=== PATIENT | male | born 1990 | race Caucasian/White ===

== ENCOUNTER 2017-04-29 23:47 | Inpatient (IN) | payer MEDICAID ==
--- NOTE | 2017-04-30 00:08 | C.PDOC ---
History Of Present Illness 26 y/o male presents to emergency department requesting heroin detox. Patient states last use was 10:00 AM today. Denies withdrawal symptoms, fever, chills, nausea, vomiting, suicidal ideation/homicidal ideation or other complaints. Time Seen by Provider: 04/30/17 00:07 Chief Complaint (Nursing): Substance Abuse History Per: Patient History/Exam Limitations: no limitations Onset/Duration Of Symptoms: Persistent Current Symptoms Are (Timing): Still Present Modifying Factor(s): Narcotics Pain Scale Rating Of: 0 Associated Symptoms: denies: Suicidal Thoughts, Suicidal Plan Recent travel outside of the [place]: No Past Medical History Reviewed: Historical Data, Nursing Documentation, Vital Signs Vital Signs: Last Vital Signs Temp 98.4 F 04/29/17 23:50 Pulse 91 H 04/30/17 02:55 Resp 16 04/30/17 02:55 BP 102/74 04/30/17 02:55 Pulse Ox 97 04/30/17 02:55 - Medical History PMH: No Chronic Diseases Family History: States: Unknown Family Hx - Social History Hx Alcohol Use: Yes Hx Substance Use: Yes - Immunization History Hx Tetanus Toxoid Vaccination: No Hx Influenza Vaccination: No Hx Pneumococcal Vaccination: No Review Of Systems Constitutional: Negative for: Fever, Chills Cardiovascular: Negative for: Chest Pain, Palpitations Respiratory: Negative for: Shortness of Breath Gastrointestinal: Negative for: Nausea, Vomiting Skin: Negative for: Rash Neurological: Negative for: Headache, Dizziness Physical Exam - Physical Exam Appears: Non-toxic, No Acute Distress Skin: Warm, Dry Head: Atraumatic Chest: Symmetrical Cardiovascular: Rhythm Regular Respiratory: Normal Breath Sounds, No Rales, No Rhonchi, No Wheezing Gastrointestinal/Abdominal: Soft, No Tenderness, No Guarding, No Rebound Back: Normal Inspection Extremity: Normal ROM, Capillary Refill (< 2 sec. ) Neurological/Psych: Oriented x3, Normal Speech, Normal Cognition ED Course And Treatment - Laboratory Results Result Diagrams: 04/30/17 00:24 04/30/17 00:24 O2 Sat by Pulse Oximetry: 98 (RA) Pulse Ox Interpretation: Normal Progress Note: Labs, crisis eval. Disposition Discussed With : Jorge Terrazas Comment: accepted the pt on his service and took over the care at 5:50 AM Doctor Will See Patient In The: Hospital Counseled Patient/Family Regarding: Studies Performed, Diagnosis - Disposition Disposition: HOSPITALIZED Disposition Time: 00:07 Condition: FAIR - POA Present On Arrival: None - Clinical Impression Clinical Impression: Drug abuse, Drug dependence - Scribe Statement The provider has reviewed the documentation as recorded by the Scribe Daron Florence All medical record entries made by the Scribe were at my direction and personally dictated by me. I have reviewed the chart and agree that the record accurately reflects my personal performance of the history, physical exam, medical decision making, and the department course for this patient. I have also personally directed, reviewed, and agree with the discharge instructions and disposition. Decision To Admit - Pt Status Changed To: Hospital Disposition Of: Inpatient - Admit Certification Admit to Inpatient:: After my assessment, the patient will require hospitalization for at least two midnights. This is because of the severity of symptoms shown, intensity of services needed, and/or the medical risk in this patient being treated as an outpatient. - InPatient: Physician Admission Certification: I certify that this patient requires 2 or more midnights of care for the following reason:: After my assessment, the patient will require hospitalization for at least two midnights. This is because of the severity of symptoms shown, intensity of services needed, and/or the medical risk in this patient being treated as an outpatient. - . Bed Request Type: Detox Admitting Physician: Jorge Terrazas Patient Diagnosis: Drug abuse, Drug dependence
[2017-04-30 00:30] LABS: BASO # 0.1 K/uL (0.0-0.2); BASO % 0.5 % (0.0-2.0); EOS # 0.3 K/uL (0.0-0.7); EOS % 2.4 % (0.0-4.0); HEMOGLOBIN 15.6 g/dL (12.0-18.0); LYMPH # 2.7 K/uL (1.0-4.3); MEAN CELL VOLUME 84.3 fL (80.0-94.0); MEAN CORPUSCULAR HEMOGLOBIN 26.9 pg (27.0-31.0); MEAN PLATELET VOLUME 7.4 fL (7.2-11.7); MONO # 1.6 K/uL (0.0-0.8); MONO % 11.5 % (0.0-10.0); NEUT # 8.9 K/uL (1.8-7.0); NEUT % 65.6 % (50.0-75.0); RBC 5.81 Mil/uL (4.40-5.90); RED CELL DISTRIBUTION WIDTH 14.3 % (11.5-14.5); WHITE BLOOD COUNT 13.5 K/uL (4.8-10.8)
[2017-04-30 00:32] LABS: URINE BILIRUBIN NEGATIVE (NEGATIVE); URINE BLOOD NEGATIVE (NEGATIVE); URINE CALCIUM OXALATE CRYSTALS MOD /hpf (<OCC); URINE CLARITY Hazy (Clear); URINE COLOR Amber (YELLOW); URINE GLUCOSE (UA) NORMAL (Normal); URINE LEUKOCYTE ESTERASE NEG Leu/uL (Negative); URINE NITRATE NEGATIVE (NEGATIVE); URINE PROTEIN NEGATIVE (NEGATIVE); URINE UROBILINOGEN NORMAL mg/dL (0.2-1.0)
[2017-04-30 00:39] LABS: ALBUMIN 4.2 g/dL (3.5-5.0)
[2017-04-30 00:42] LABS: ALB/GLOB RATIO 1.4 (1.0-2.1); AST/SGOT 34 U/L (17-59); BLOOD UREA NITROGEN 19 mg/dL (9-20); GFR AFRICAN-AMERICAN > 60; GFR NON-AFRICAN AMERICAN > 60
[2017-04-30 00:43] LABS: ALT/SGPT 71 U/L (21-72); CALCIUM 9.9 mg/dl (8.6-10.4)
[2017-04-30 00:51] LABS: BENZODIAZEPINES, UR NEGATIVE (NEGATIVE)
[2017-04-30 00:52] LABS: BARBITURATES, UR NEGATIVE (NEGATIVE)
[2017-04-30 00:56] LABS: PHENCYCLIDINE, UR NEGATIVE (NEGATIVE)
[2017-04-30 01:11] LABS: OPIATES, UR POSITIVE (NEGATIVE)
[2017-04-30 08:04] VITALS: RESP 18
[2017-04-30] MEDS ORDERED: Aluminum Hydroxide/Magnesium Hydroxide Susp (30 mL) PO PRN (08:48)
--- NOTE | 2017-04-30 12:22 | PCM.PSYCH ---
Initial Psychiatric Evaluation - Initial Psychiatric Evaluation Type of Admission: Voluntary Legal Status: Capacity Chief Complaint (in patient's own words): "I want treatment" History of Present Illness and Precipitating Events: Patient evaluated with medical students present. This is a 26 year old male, single, no children, unemployed, currently living with mother. Patient reports his mother says he is "out of control" and must complete detox and rehab before patient can return home. Patient snorts 14-18 bags of heroin daily and has used for 3 years. Reports snorting cocaine and "$5- 10 worth of weed" weekly. Denies Benzos/Tobacco/Alcohol. Patient reports attending detox once before. Per patient, he was at [facility] 10 days ago for a 4 day stay, relapsed and then went to [facility], where he stayed for 2 days. States he left the rehab because everyone there appeared to be "on something". Also, states he left rehab to be with mother during her medical testing. Patient desires to be placed in a intermediate placement. Last heroin use: 10am yesterday Past MedHx:Denies Past PsychHx: Denies Fam MedHx: denies Fam PsychHx: denies Current Medications: Active Medications Generic Name Dose Route Start Last Admin Trade Name Freq PRN Reason Stop Dose Admin Al Hydrox/Mg Hydrox/Simethicone 30 ml 04/30/17 08:48 Maalox 30 Ml PO TID PRN Indigestion / Heartburn Clonidine HCl 0.1 mg 04/30/17 08:48 Catapres PO Q8 PRN COWS Score More or Equal to 5 Hydroxyzine HCl 50 mg 04/30/17 08:48 Atarax PO Q6H PRN Anxiety Ibuprofen 600 mg 04/30/17 08:48 Motrin Tab PO Q6H PRN Pain, moderate (4-7) Loperamide HCl 2 mg 04/30/17 08:48 Imodium PO Q8 PRN Diarrhea Ondansetron HCl 4 mg 04/30/17 08:48 Zofran Tab PO Q8 PRN Nausea/Vomiting Trazodone HCl 100 mg 04/30/17 08:48 Desyrel PO HS PRN Insomnia Past Psychiatric History - Past Psychiatric History Prior Psychiatric Treatment: Per HPI History of ETOH/Drug Use: Per HPI History of Family Illness: Per HPI Pertinent Medical Hx (Current Medical&Sleep Prob, Allergies): Allergies Allergy/AdvReac Type Severity Reaction Status Date / Time No Known Allergies Allergy Verified 04/29/17 23:54 No Known Home Med 04/29/17 Review of Systems - Constitutional Constitutional: absent: Fever, Chills, Sweats, Weakness - Neurological Neurological: absent: Abnormal Gait, Abnormal Movements, Confusion - Psychiatric Psychiatric: As Per HPI Mental Status Examination - Personal Presentation Personal Presentation: Looks stated age - Affect Affect: Broad - Motor Activity Motor Activity: Calm - Reliability in Providing Information Reliability in Providing Information: Fair - Mood Mood: Anxious - Obsessions/Compulsions Obsessions: None Compulsions: None - Cognitive Functions Orientation: Person, Place, Situation, Time Sensorium: Alert Attention/Concentration: Easily distracted Judgement: Intact, as evidence by: Insight regarding need for hospitalization Memory: Recent impaired, as evidence by: Inability to recall events of the day - Risk Risk: Diminished functioning - Strength & Assets Inventory Strength & Assets Inventory: Family support, Cooperative - Limitations Limitations: Living alone DSM 5 DX - DSM 5 DSM 5 Diagnosis: Opioid use disorder - Recommended/Plan of Treatment Treatment Recommendations and Plan of Treatment: Opioids: Subutex detox if needed As needed meds and vitamins Attend groups and activities [place] for abstinence and CBT for relapse prevention Support and psychoeducation Consider and encourage MAT Refer to after care 33min Projected ELOS: 2 days as he has recently completed a detox
[2017-04-30 15:58] VITALS: O2SAT 99
--- NOTE | 2017-05-01 08:45 | PCM.PYCHDC ---
Mental Status Examination - Mental Status Examination Orientation: Person, Place, Situation, Time Memory: Intact Mood: Anxious Affect: Constricted Speech: Appropriate Attention: WNL Concentration: WNL Association: WNL Fund of Knowledge: WNL Formal Thought Process: No Impairment Suicidal Ideation: No Current Homicidal Ideation?: No Discharge Summary - Discharge Note Reason for Hospitalization: Heroin use Consultations:: List each consultation separately and include: 1. Reason for request. 2. Findings. 3. Follow-up Summary of Hospital Course include:: 1. Description of specific treatment plan utilized for patients during their course of treatmen. 2. Summarize the time- course for resolution of acute symptoms and/or regressed behaviors. 3. Describe issues identified and worked on during hospitalization. 4. Describe medication utilized. 5. Describe medical problems identified and treated. 6. Reassessment of suicide risk Summary of Hospital Course: Patient evaluated with medical students present. On admission: This is a 26 year old male, single, no children, unemployed, currently living with mother. Patient reports his mother says he is "out of control" and must complete detox and rehab before patient can return home. Patient snorts 14-18 bags of heroin daily and has used for 3 years. Reports snorting cocaine and "$5- 10 worth of weed" weekly. Denies Benzos/Tobacco/Alcohol. Patient reports attending detox once before. Per patient, he was at [facility] 10 days ago for a 4 day stay, relapsed and then went to [facility], where he stayed for 2 days. States he left the rehab because everyone there appeared to be "on something". Also, states he left rehab to be with mother during her medical testing. 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 Last heroin use: 10am yesterday Past MedHx:Denies Past PsychHx: Denies Fam MedHx: denies Fam PsychHx: denies Hospital course: The pt was admitted and started on treatment with psychotherapy, support, psychoeducation and medications. AL and CBT used. The pt attended some groups and activities, as well as milieu therapy. He did not have any major sxs so he did not receive detox meds and dc'ed the next day. Supportive measures provided and that was enough/ He agreed with the plan and d/c \\He refused meds and said "God will help" him. After care discussed with the patient. He is accepted by [facility] in even though he AMA'ed from the one in [place]. - Final Diagnosis (DSM 5) Condition upon Discharge: IMPROVED DSM 5: Opioid use disorder - severe personality d/o - unspecified Disposition: REHAB FACILITY/REHAB UNIT Follow-up Treatment Plan: No meds per his request Follow after care plan as discussed. Use relapse prevention skills Return to ER or call 911 if suicidal, homicidal or symptoms relapse. Stay away from stress, alcohol and drugs. See primary doctor once a year. - Smoking Cessation Smoking Cessation Medication prescribed: No - Antipsychotic Medications Pt discharged on 2 or more routine antipsychotic medications: No
--- NOTE | 2017-05-01 08:50 | PCM.BM ---
Treatment Plan Problems - Problems identified on initial assessmt Opioid Dependence Date Initiated: 05/01/17 Time Initiated: 08:49 Assessment reference: NA Status: Active Treatment assets and liabiliti Patient Assests: ADL independent Patient Liabilities: substance abuse - Milieu Protocol Maintain good personal hygiene: daily Encourage regular showers, daily Remind patient to perform daily oral care, other Assist patient to perform ADL's (PRN) Maintain personal safety: every shift Educate patient to report safety concerns to staff, every shift Monitor environment for contraband/sharps Medication safety: Monitor for expected outcome, potential side effects: every shift, Assess barriers to learning: every shift, Assess readiness for medication education: every shift Milieu Narrative: No meds per his request Follow after care plan as discussed. Use relapse prevention skills Return to ER or call 911 if suicidal, homicidal or symptoms relapse. Stay away from stress, alcohol and drugs. See primary doctor once a year. Discharge/Continuing Care - Additional Comments No meds per his request Follow after care plan as discussed. Use relapse prevention skills Return to ER or call 911 if suicidal, homicidal or symptoms relapse. Stay away from stress, alcohol and drugs. See primary doctor once a year. - Treatment Team Participation Patient/Family/SO Statement: No meds per his request Follow after care plan as discussed. Use relapse prevention skills Return to ER or call 911 if suicidal, homicidal or symptoms relapse. Stay away from stress, alcohol and drugs. See primary doctor once a year.
[2017-05-01 10:13] VITALS: BP 134/79; PULSE 78; TEMP 98.4
== END 2017-05-01 10:30 | DRG 745 ==
LOC: C.ER 23:47 → C.7D 04-30 05:54
PROVIDERS: ADMIT Psychiatry & Neurology Psychiatry; ATTEND Psychiatry & Neurology Psychiatry
PROC: HZ56ZZZ Individual Psychotherapy for Substance Abuse Treatment, Psychoeducation (ICD-10-PCS; principal; 2017-04-30)
PROC: HZ59ZZZ Individual Psychotherapy for Substance Abuse Treatment, Supportive (ICD-10-PCS; 2017-04-30)
PROC: HZ2ZZZZ Detoxification Services for Substance Abuse Treatment (ICD-10-PCS; 2017-04-30)
DX: F11.23 Opioid dependence with withdrawal (principal); F19.20 Other psychoactive substance dependence, uncomplicated